=== PATIENT | female | born 1980 | race Caucasian/White ===

== ENCOUNTER 2019-02-18 23:04 | Emergency (ER) | payer OTHER ==
[~2019-02-18] VITALS: Ht 160 cm; Wt 43.0 kg
[~2019-02-18 23:04] MED LIST: CYAN1TAB2 PO; MAGN400T50 PO; MULT-484 PO; NICO-486 TD; POTA10TA5 PO; POTA20PA31 PO
--- NOTE | 2019-02-18 23:12 | NUR ---
PT REQUESTING NICOTENE PATCH, AWARE WE NEED TO WAIT FOR PRACTIONER.
[2019-02-18 23:34] VITALS: BP 121/82
== END 2019-02-19 00:38 | disposition home or self-care (01) ==
LOC: ED 02-19 00:31
DX: F10.120 Alcohol abuse with intoxication, uncomplicated (principal); F17.210 Nicotine dependence, cigarettes, uncomplicated; Z72.9 Problem related to lifestyle, unspecified
CPT/HCPCS: 99283

== ENCOUNTER 2020-04-06 20:20 | Outpatient (CLI) | payer MEDICAID ==
[~2020-04-06] VITALS: Ht 160 cm; Wt 58.1 kg
== END 2020-04-06 21:38 | disposition home or self-care (01) ==
LOC: LDOP 20:20
PROVIDERS: ATTEND Obstetrics & Gynecology
DX: O42.92 Full-term premature rupture of membranes, unspecified as to length of time between rupture and onset of labor (principal); Z3A.37 37 weeks gestation of pregnancy
CPT/HCPCS: 59025; 84112; 99211; G0463

== ENCOUNTER 2020-04-15 06:14 | Inpatient (IN) | payer MEDICAID ==
[~2020-04-15] VITALS: Ht 160 cm; Wt 58.2 kg
[2020-04-15] MEDS ORDERED: LACTATED RINGERS 1,000 ML IV SCH ×2 (06:17→06:37)
[2020-04-15] MEDS ORDERED: OXYTOCIN 30U/ 0.9% NaCL 500ML 500 ML IV PRN (06:17)
[2020-04-15] MEDS ORDERED: OXYTOCIN 30U/ 0.9% NaCL 500ML 500 ML IV ONE (06:17)
[2020-04-15] MEDS ORDERED: LIDOCAINE 1%, 20ML ONE (06:17)
[2020-04-15] MEDS ORDERED: MISOPROSTOL 200 MCG TABLET ONE (06:17)
[2020-04-15] MEDS ORDERED: NEWBORN KIT ONE (06:17)
[2020-04-15] MEDS ORDERED: OXYTOCIN 30U/ 0.9% NaCL 500ML 500 ML ONE ×2 (06:17→15:22)
[2020-04-15] MEDS ORDERED: TERBUTALINE 1 MG/ML, 1ML SQ PRN (06:30)
[2020-04-15] MEDS ORDERED: FENTANYL PF 100 MCG/2ML IV PRN (06:30)
[2020-04-15] MEDS ORDERED: METOCLOPRAMIDE 5 MG/ML, 2ML IVPush PRN (06:30)
[2020-04-15] MEDS ORDERED: CALCIUM CARBONATE 500 MG TAB.CHEW PO PRN (06:30)
[2020-04-15] MEDS ORDERED: ONDANSETRON 2MG/ML, 2ML IVPush PRN (06:30)
[2020-04-15] MEDS ORDERED: FENTANYL PF 100 MCG/2ML IVPush PRN (06:30)
[2020-04-15] MEDS ORDERED: SODIUM CITRATE/CITRIC ACID 30 ML UDC PO PRN (06:30)
[2020-04-15] MEDS ORDERED: TERBUTALINE 1 MG/ML, 1ML IVPush PRN (06:30)
[2020-04-15 06:35] VITALS: BP 120/74
[2020-04-15] MEDS ORDERED: FENTANYL/BUPIV./NS/PF 250 ML EPIDCONT SCH (06:37)
[2020-04-15] MEDS ORDERED: FENTANYL PF 500 MCG, BUPIVACAINE/PF 0.5%, 30ML 62.5 ML in SODIUM CHLORIDE 0.9% 177.5 ML EPIDCONT SCH (07:00)
[2020-04-15] MEDS ORDERED: PLEASE ENTER HEIGHT AND WEIGHT MC SCH (07:00)
[2020-04-15] MEDS ORDERED: LACTATED RINGERS 1,000 ML IVBOLUS PRN (07:00)
[2020-04-15] MEDS ORDERED: EPHEDRINE 50 MG/ML, 1ML IVPush PRN (07:00)
[2020-04-15 07:21] LABS: BASOPHILS # (AUTO) 0.04 x10^3/uL (0-0.1); BASOPHILS % (AUTO) 0 % (0-1); EOSINOPHILS # (AUTO) 0.09 x10^3/uL (0-0.4); EOSINOPHILS % (AUTO) 1 % (1-7); LYMPHOCYTES # (AUTO) 1.86 x10^3/uL (1-3.4); LYMPHOCYTES % (AUTO) 14 % (22-44); MD NO; MEAN CORPUSCULAR HEMOGLOBIN 32.1 pg (27.0-34.8); MEAN CORPUSCULAR HGB CONC 33.5 g/dL (32.4-35.8); MEAN CORPUSCULAR VOLUME 95.8 fL (80-100); MEAN PLATELET VOLUME 9.3 fL (7.4-10.4); MONOCYTES # (AUTO) 0.43 x10^3/uL (0.2-0.8); MONOCYTES % (AUTO) 3 % (2-9); NEUTROPHILS # (AUTO) 10.69 x10^3/uL (1.8-6.8); NEUTROPHILS % (AUTO) 82 % (42-75); PLATELET COUNT 229 x10^3/uL (130-400); RED BLOOD COUNT 3.83 x10^6/uL (3.82-5.3); RED CELL DISTRIBUTION WIDTH 14.2 % (9.6-15.2)
[2020-04-15] MEDS ORDERED: metroNIDAZOLE 500 MG TABLET PO ONE (08:00)
[2020-04-15] MEDS ORDERED: FENTANYL PF 100 MCG/2ML ONE (13:39)
[2020-04-15] MEDS ORDERED: LIDOCAINE/PF 1.5%-EPI 1:200K, 30ML ONE (13:40)
[2020-04-15] MEDS ORDERED: BUPIVACAINE/PF 0.25% ONE (13:40)
[2020-04-15] MEDS ORDERED: BUPIVACAINE 0.25% ONE (13:40)
[2020-04-15] MEDS ORDERED: IBUPROFEN 600 MG TABLET ONE (15:54)
[2020-04-15] MEDS: IBUPROFEN 600 MG TABLET PO PRN ×2 (15:55→22:40)
[2020-04-15] MEDS ORDERED: ONDANSETRON 2MG/ML, 2ML IV PRN (16:00)
[2020-04-15] MEDS ORDERED: MISOPROSTOL 200 MCG TABLET PR PRN (16:00)
[2020-04-15] MEDS ORDERED: SIMETHICONE 80 MG CHEW TAB PO PRN (16:00)
[2020-04-15] MEDS ORDERED: ACETAMINOPHEN 325 MG TABLET PO PRN (16:00)
[2020-04-15] MEDS ORDERED: OXYcodone/APAP 5/325MG TABLET PO PRN (16:00)
[2020-04-15 18:10] VITALS: BP 103/64
[2020-04-15 19:30] VITALS: BP 110/71
[2020-04-15] MEDS: OXYTOCIN 30U/ 0.9% NaCL 500ML 500 ML IV SCH (21:32)
[2020-04-15] MEDS: DOCUSATE 100 MG CAPSULE PO PRN (22:39)
[2020-04-16] VITALS: BP 103/65
[2020-04-16 00:32] LABS: BASOPHILS # (AUTO) 0.05 x10^3/uL (0-0.1); BASOPHILS % (AUTO) 0 % (0-1); EOSINOPHILS % (AUTO) 1 % (1-7); LYMPHOCYTES # (AUTO) 2.24 x10^3/uL (1-3.4); LYMPHOCYTES % (AUTO) 13 % (22-44); MD NO; MEAN CORPUSCULAR HGB CONC 33.5 g/dL (32.4-35.8); MEAN CORPUSCULAR VOLUME 95.5 fL (80-100); MEAN PLATELET VOLUME 9.1 fL (7.4-10.4); MONOCYTES # (AUTO) 0.53 x10^3/uL (0.2-0.8); MONOCYTES % (AUTO) 3 % (2-9); NEUTROPHILS # (AUTO) 14.18 x10^3/uL (1.8-6.8); NEUTROPHILS % (AUTO) 83 % (42-75); PLATELET COUNT 173 x10^3/uL (130-400); RED BLOOD COUNT 3.21 x10^6/uL (3.82-5.3); RED CELL DISTRIBUTION WIDTH 13.9 % (9.6-15.2)
[2020-04-16] MEDS: OXYTOCIN 30U/ 0.9% NaCL 500ML 500 ML IV SCH (02:00)
[2020-04-16 04:30] VITALS: BP 97/61
[2020-04-16] MEDS: IBUPROFEN 600 MG TABLET PO PRN ×3 (04:32→17:07)
[2020-04-16 07:45] VITALS: BP 99/65
[2020-04-16] MEDS ORDERED: PRENATAL VIT/IRON/FA 1 EACH TABLET PO SCH (09:00)
[2020-04-16] MEDS: DOCUSATE 100 MG CAPSULE PO PRN (10:35)
[2020-04-16 12:00] VITALS: BP 95/59
[2020-04-16] MEDS ORDERED: IBUP-1222 PO (14:13)
== END 2020-04-16 18:20 | disposition home or self-care (01) | DRG 560 ==
LOC: LDIP 06:14 → 2NW 17:51
PROVIDERS: ADMIT Obstetrics & Gynecology; ATTEND Obstetrics & Gynecology
PROC: 10E0XZZ Delivery of Products of Conception, External Approach (ICD-10-PCS; principal; 2020-04-15)
PROC: 0HQ9XZZ Repair Perineum Skin, External Approach (ICD-10-PCS; 2020-04-15)
DX: O32.8XX0 Maternal care for other malpresentation of fetus, not applicable or unspecified (principal); O98.32 Other infections with a predominantly sexual mode of transmission complicating childbirth; O24.420 Gestational diabetes mellitus in childbirth, diet controlled; O40.3XX0 Polyhydramnios, third trimester, not applicable or unspecified; A59.9 Trichomoniasis, unspecified; O70.0 First degree perineal laceration during delivery; Z3A.39 39 weeks gestation of pregnancy; Z37.0 Single live birth; Z82.49 Family history of ischemic heart disease and other diseases of the circulatory system; Z83.3 Family history of diabetes mellitus; Z87.891 Personal history of nicotine dependence
CPT/HCPCS: J3490; S0020; 36415; 82947; 82962; 85025; 86592; 86850; 86870; 86900; 86922; 86923; G0378; J3010; J2590; J7050; J7120

== ENCOUNTER 2020-04-28 20:53 | Outpatient (CLI) | payer MEDICAID ==
[~2020-04-28 20:53] MED LIST changes: +IBUP-1222 PO
[2020-04-28 21:00] VITALS: BP 144/80
[2020-04-28 22:11] LABS: BASOPHILS # (AUTO) 0.04 x10^3/uL (0-0.1); BASOPHILS % (AUTO) 0 % (0-1); EOSINOPHILS # (AUTO) 0.23 x10^3/uL (0-0.4); EOSINOPHILS % (AUTO) 2 % (1-7); LYMPHOCYTES # (AUTO) 2.88 x10^3/uL (1-3.4); LYMPHOCYTES % (AUTO) 24 % (22-44); MD NO; MEAN CORPUSCULAR HEMOGLOBIN 31.8 pg (27.0-34.8); MEAN CORPUSCULAR HGB CONC 33.2 g/dL (32.4-35.8); MEAN CORPUSCULAR VOLUME 95.6 fL (80-100); MEAN PLATELET VOLUME 8.4 fL (7.4-10.4); MONOCYTES # (AUTO) 0.42 x10^3/uL (0.2-0.8); MONOCYTES % (AUTO) 4 % (2-9); NEUTROPHILS # (AUTO) 8.44 x10^3/uL (1.8-6.8); NEUTROPHILS % (AUTO) 70 % (42-75); PLATELET COUNT 262 x10^3/uL (130-400); RED BLOOD COUNT 3.88 x10^6/uL (3.82-5.3)
[2020-04-28] MEDS ORDERED: NIFE30TA2 PO (22:18)
[2020-04-28 22:20] LABS: ALANINE AMINOTRANSFERASE 16 U/L (12-78); ALBUMIN 3.1 g/dL (3.4-5.0); ANION GAP 7 mmol/L (5-15); BILIRUBIN, DIRECT < 0.1 mg/dL (0.1-0.2); CALCIUM 7.8 mg/dL (8.5-10.1); CHLORIDE 111 mmol/L (98-107); CREATININE 0.81 mg/dL (0.55-1.02)
[2020-04-28 22:22] LABS: ALKALINE PHOSPHATASE 121 U/L (45-117); BILIRUBIN,TOTAL 0.2 mg/dL (0.2-1.0); TOTAL PROTEIN 6.4 g/dL (6.4-8.2)
== END 2020-04-28 23:22 | disposition home or self-care (01) ==
LOC: LDOP 20:53
PROVIDERS: ATTEND Obstetrics & Gynecology
DX: O09.523 Supervision of elderly multigravida, third trimester (principal); O16.3 Unspecified maternal hypertension, third trimester; Z3A.36 36 weeks gestation of pregnancy
CPT/HCPCS: 36415; 80053; 82248; 84550; 85025

== ENCOUNTER 2020-09-26 14:15 | Emergency (ER) | payer MEDICAID ==
[~2020-09-26] VITALS: Ht 160 cm; Wt 57.0 kg
[~2020-09-26 14:15] MED LIST changes: +NIFE30TA2 PO
--- NOTE | 2020-09-26 15:14 | NUR ---
PATIENT WALKED BACK FROM TRIAGE WITH CHIEF C/O "MY BODY IS SO SCREWED UP." PATIENT STATES SHE DEVELOPED A DRINKING PROBLEM IN 2017 AND FEELS LIKE HER ELECTROLYTES ARE OFF, STATES "I'VE HAD TO DEAL WITH KETOACIDOSIS HERE." PATIENT REPORTS LAST DRINK WAS "30 MINUTES AGO." SHE STATES SHE STARTED DRINKING AGAIN 3 WEEKS AGO, TRIED DETOXING AT HOME THE LAST 3 DAYS AND IT DIDN'T WORK. NO SIGNS OF ACUTE DISTRESS, CONNECTED TO VITALS MACHINE, CALL LIGHT WITHIN REACH.
[2020-09-26 15:23] LABS: BASOPHILS % (AUTO) 0 % (0-1); EOSINOPHILS % (AUTO) 0 % (1-7); LYMPHOCYTES % (AUTO) 43 % (22-44); MEAN CORPUSCULAR HEMOGLOBIN 32.7 pg (27.0-34.8); MEAN CORPUSCULAR HGB CONC 33.8 g/dL (32.4-35.8); MEAN PLATELET VOLUME 8.7 fL (7.4-10.4); MONOCYTES % (AUTO) 8 % (2-9); NEUTROPHILS % (AUTO) 49 % (42-75); PLATELET COUNT 186 x10^3/uL (130-400); RED BLOOD COUNT 5.24 x10^6/uL (3.82-5.3); RED CELL DISTRIBUTION WIDTH 15.7 % (9.6-15.2)
[2020-09-26 15:24] LABS: MD NO
--- NOTE | 2020-09-26 15:24 | NUR ---
ERMD AT BEDSIDE TO DISCUSS POC.
[2020-09-26 15:25] LABS: ALANINE AMINOTRANSFERASE 38 U/L (12-78); ALBUMIN 3.9 g/dL (3.4-5.0); ANION GAP 8 mmol/L (5-15); CALCIUM 8.5 mg/dL (8.5-10.1); CHLORIDE 108 mmol/L (98-107)
--- NOTE | 2020-09-26 15:25 | NUR ---
EDUCATED PATIENT ON NEED FOR URINE SAMPLE, PATIENT STATES SHE CANNOT GO RIGHT NOW.
[2020-09-26 15:27] VITALS: BP 113/80
[2020-09-26 15:30] LABS: ALKALINE PHOSPHATASE 218 U/L (45-117); BILIRUBIN,TOTAL 0.2 mg/dL (0.2-1.0); TOTAL PROTEIN 7.7 g/dL (6.4-8.2)
--- NOTE | 2020-09-26 15:45 | NUR ---
REPORT GIVEN TO SHWETA PRATHER FOR TRANSFER OF PATIENT CARE.
--- NOTE | 2020-09-26 15:54 | NUR ---
REPORT RC'VD FROM [facility] AND CARE OF PT ASSUMED. PT AMBULATED TO BR WITHOUT DIFFICULTY, INSTRUCTED ON CLEAN CATCH URINE SAMPLE. WARM BLANKET & WATER PROVIDED.
[2020-09-26 16:23] LABS: MICROSCOPIC NOT IND
[2020-09-26] MEDS ORDERED: POTASSIUM CHLORIDE 20 MEQ TAB.ER.PRT ONE (16:24)
[2020-09-26] MEDS ORDERED: POTASSIUM CHLORIDE 20 MEQ TAB.ER.PRT PO ONE (16:30)
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
== END 2020-09-26 16:36 | disposition home or self-care (01) ==
LOC: ED 16:15
DX: F10.20 Alcohol dependence, uncomplicated (principal); E87.6 Hypokalemia; R10.84 Generalized abdominal pain; Y90.9 Presence of alcohol in blood, level not specified
CPT/HCPCS: 36415; 80053; 80307; 81003; 83690; 83735; 84703; 85025; 99283

== ENCOUNTER 2020-09-28 08:28 | Emergency (ER) | payer MEDICAID ==
[~2020-09-28] VITALS: Ht 160 cm; Wt 54.4 kg
[2020-09-28 08:29] VITALS: BP 150/95
[2020-09-28] MEDS ORDERED: CHLORDIAZEPOXIDE 25 MG CAPSULE PO ONE (09:00)
[2020-09-28] MEDS ORDERED: THIAMINE 100MG TABLET PO ONE (09:00)
[2020-09-28] MEDS ORDERED: CHLORDIAZEPOXIDE 25 MG CAPSULE ONE (09:07)
[2020-09-28] MEDS ORDERED: THIAMINE 100MG TABLET ONE (09:07)
== END 2020-09-28 09:47 | disposition home or self-care (01) ==
LOC: ED 09:25
DX: F10.10 Alcohol abuse, uncomplicated (principal); F41.9 Anxiety disorder, unspecified; R00.0 Tachycardia, unspecified; R25.1 Tremor, unspecified; Z90.49 Acquired absence of other specified parts of digestive tract; Y90.9 Presence of alcohol in blood, level not specified
CPT/HCPCS: 93005; 99283

== ENCOUNTER 2020-10-09 12:54 | Emergency (ER) | payer MEDICAID ==
[~2020-10-09] VITALS: Ht 160 cm; Wt 55.9 kg
[2020-10-09 13:14] VITALS: BP 149/92
== END 2020-10-09 14:49 | disposition home or self-care (01) ==
LOC: ED 14:32
DX: S93.621A Sprain of tarsometatarsal ligament of right foot, initial encounter (principal); S90.32XA Contusion of left foot, initial encounter; F10.129 Alcohol abuse with intoxication, unspecified; Z90.49 Acquired absence of other specified parts of digestive tract; Y90.9 Presence of alcohol in blood, level not specified; X58.XXXA Exposure to other specified factors, initial encounter; Y93.89 Activity, other specified; Y92.410 Unspecified street and highway as the place of occurrence of the external cause; Y99.8 Other external cause status
CPT/HCPCS: 99284

== ENCOUNTER 2021-01-10 13:17 | Inpatient (IN) | payer MEDICAID ==
[~2021-01-10] VITALS: Ht 160 cm; Wt 58.4 kg
[2021-01-10] MEDS ORDERED: ONDANSETRON 2MG/ML, 2ML IVPush ONE (13:30)
[2021-01-10] MEDS ORDERED: SODIUM CHLORIDE 0.9% 1,000ML IVBOLUS ONE (13:30)
[2021-01-10] MEDS ORDERED: FAMOTIDINE 20 MG/2 ML IVPush ONE (13:30)
[2021-01-10] MEDS ORDERED: ONDANSETRON 2MG/ML, 2ML ONE (13:33)
[2021-01-10] MEDS ORDERED: FAMOTIDINE 20 MG/2 ML ONE (13:34)
[2021-01-10 13:46] LABS: MEAN CORPUSCULAR HEMOGLOBIN 32.5 pg (27.0-34.8); MEAN CORPUSCULAR HGB CONC 33.4 g/dL (32.4-35.8); PLATELET COUNT 104 x10^3/uL (130-400); RED BLOOD COUNT 4.78 x10^6/uL (3.82-5.3); RED CELL DISTRIBUTION WIDTH 15.3 % (9.6-15.2)
[2021-01-10 13:55] LABS: ALANINE AMINOTRANSFERASE 62 U/L (12-78); ALBUMIN 3.7 g/dL (3.4-5.0); ANION GAP 25 mmol/L (5-15); CALCIUM 7.4 mg/dL (8.5-10.1); CHLORIDE 99 mmol/L (98-107)
[2021-01-10 14:00] LABS: ALKALINE PHOSPHATASE 163 U/L (45-117); BILIRUBIN,TOTAL 0.8 mg/dL (0.2-1.0); CREATININE 0.91 mg/dL (0.55-1.02); TOTAL PROTEIN 7.3 g/dL (6.4-8.2)
[2021-01-10] MEDS ORDERED: LORazepam 2 MG/ML, 1ML IVPush ONE (14:00)
[2021-01-10 14:03] LABS: MD YES
[2021-01-10 14:06] LABS: <PLATELET ESTIMATE> DECREASED; <RBC MORPHOLOGY> NORMAL; BAND#(MANUAL) 2.31 x10^3/uL; BANDS%(MANUAL) 15 % (0-7); LYMPH#(MANUAL) 0.31 x10^3/uL (1-3.4); LYMPHS% (MANUAL) 2 % (22-44); SEG#(MANUAL) 12.78 x10^3/uL (1.8-6.8); SEGS% (MANUAL) 83 % (42-75)
[2021-01-10 14:08] LABS: LARGE PLATELETS 1+
[2021-01-10] MEDS ORDERED: LORazepam 2 MG/ML, 1ML ONE ×2 (14:12→16:00)
[2021-01-10] MEDS ORDERED: MAALOX/HYOSCYAMINE/LIDOCAINE 45 ML BTL ONE (14:13)
[2021-01-10] MEDS: MAALOX/HYOSCYAMINE/LIDOCAINE 45 ML BTL PO ONE ×3 (14:21→17:02)
--- NOTE | 2021-01-10 14:40 | NUR ---
(CONTINIUED) OF INTENT TO ADMIT
--- NOTE | 2021-01-10 14:40 | NUR ---
RE-EVAL. TO BE ADMITTED. PT AWARE
[2021-01-10] MEDS ORDERED: ONDANSETRON ODT 4 MG PO PRN (15:00)
[2021-01-10] MEDS ORDERED: ONDANSETRON 2MG/ML, 2ML IVPush PRN (15:00)
[2021-01-10] MEDS ORDERED: SODIUM CHLORIDE 0.9% 1,000 ML IV ONE (15:00)
[2021-01-10] MEDS ORDERED: GABAPENTIN 300 MG CAPSULE PO PRN (15:00)
[2021-01-10] MEDS ORDERED: LORazepam 0.5MG TABLET PO PRN (15:00)
[2021-01-10] MEDS ORDERED: LORazepam 2 MG/ML, 1ML IV PRN ×4 (15:00)
[2021-01-10] MEDS ORDERED: LORazepam 1MG TABLET PO PRN ×3 (15:00)
[2021-01-10] MEDS ORDERED: ACETAMINOPHEN 325 MG TABLET PO PRN (15:00)
[2021-01-10] MEDS ORDERED: METOCLOPRAMIDE 5 MG/ML, 2ML IVPush PRN (15:00)
[2021-01-10] MEDS ORDERED: SODIUM CHLORIDE FLUSH 10ML SYR IVF PRN (15:00)
[2021-01-10] MEDS ORDERED: ENALAPRILAT 1.25 MG/ML, 2ML IVPush PRN (15:00)
[2021-01-10] MEDS ORDERED: LORazepam 2 MG/ML, 1ML IVPush PRN (16:00)
--- NOTE | 2021-01-10 16:00 | NUR ---
PT NOTED TO BE SLEEPING FROM POINT RECEIVING ONE MG OF ATIVAN UNTIL NOW. STRAIGHT CATH URINE OBTAINED AND PUREWICK IN PLACE. PT C/O CP WHEN SHE AWOKE ,PRESSURE TYPE. ER MD AWARE ALONG WITH EKG COMPLETED. CIWA TO BE COMPLETED AND MEDICATED FOR ALCOHOL W/D SYMPTOMS
[2021-01-10 16:05] LABS: MICROSCOPIC AUTO
--- NOTE | 2021-01-10 16:24 | NUR ---
REPORT TO RN. AWAITING ROOM TO BE CLEAN BEFORE TRANSFERRING TO FLOOR
[2021-01-10] MEDS ORDERED: THIAMINE 200 MG in DEXTROSE 5% 50 ML IVPB ONE (17:00)
[2021-01-10] MEDS ORDERED: FOLIC ACID 5 MG/ML IM ONE (17:00)
[2021-01-10] MEDS: HEPARIN 5,000 UNITS/ML, 1ML SQ SCH (17:00)
[2021-01-10 17:27] VITALS: BP 125/78
[2021-01-10] MEDS: CHLORDIAZEPOXIDE 25 MG CAPSULE PO SCH ×2 (17:46→20:21)
[2021-01-10 18:31] VITALS: BP 125/78
[2021-01-10] MEDS: FOLIC ACID IV SCH (18:55)
[2021-01-10] MEDS: MAGNESIUM SULFATE IV SCH (18:55)
[2021-01-10] MEDS: POTASSIUM CHLORIDE IV SCH (18:55)
[2021-01-10] MEDS: [UNRECOGNIZED DRUG - OTHER] IV SCH (18:55)
[2021-01-10 19:28] VITALS: BP 127/64
[2021-01-10] MEDS: LACTULOSE 10 GM/15 ML UDC PO SCH (20:21)
[2021-01-10] MEDS: LORazepam 2 MG/ML, 1ML IV PRN (22:33)
[2021-01-11 01:34] VITALS: BP 114/67
[2021-01-11] MEDS: [UNRECOGNIZED DRUG - OTHER] IV SCH (01:45)
[2021-01-11] MEDS: POTASSIUM CHLORIDE IV SCH (01:45)
[2021-01-11] MEDS: FOLIC ACID IV SCH (01:45)
[2021-01-11] MEDS: MAGNESIUM SULFATE IV SCH (01:45)
[2021-01-11] MEDS: HEPARIN 5,000 UNITS/ML, 1ML SQ SCH ×3 (01:45→17:48)
[2021-01-11] MEDS: CHLORDIAZEPOXIDE 25 MG CAPSULE PO SCH ×4 (03:09→20:11)
[2021-01-11 05:42] LABS: MEAN CORPUSCULAR HEMOGLOBIN 32.1 pg (27.0-34.8); MEAN CORPUSCULAR HGB CONC 33.7 g/dL (32.4-35.8); MEAN PLATELET VOLUME 9.5 fL (7.4-10.4); RED CELL DISTRIBUTION WIDTH 15.1 % (9.6-15.2)
[2021-01-11 05:51] LABS: CHLORIDE 104 mmol/L (98-107)
[2021-01-11 06:00] LABS: ANION GAP 6 mmol/L (5-15); CALCIUM 7.5 mg/dL (8.5-10.1); CREATININE 0.64 mg/dL (0.55-1.02)
[2021-01-11] MEDS: LORazepam 2 MG/ML, 1ML IV PRN ×2 (06:14→22:02)
[2021-01-11 06:30] LABS: PLATELET COUNT 70 x10^3/uL (130-400)
[2021-01-11 06:31] LABS: MD YES
[2021-01-11 06:33] LABS: LYMPH#(MANUAL) 0.76 x10^3/uL (1-3.4); LYMPHS% (MANUAL) 12 % (22-44); MONOS#(MANUAL) 0.25 x10^3/uL (0.3-2.7); MONOS% (MANUAL) 4 % (2-9)
[2021-01-11 06:34] LABS: BAND#(MANUAL) 0.63 x10^3/uL; BANDS%(MANUAL) 10 % (0-7); SEG#(MANUAL) 4.66 x10^3/uL (1.8-6.8); SEGS% (MANUAL) 74 % (42-75)
[2021-01-11 06:36] LABS: <PLATELET ESTIMATE> DECREASED; <PLT MORPHOLOGY> NORMAL PLT MORPH; <RBC MORPHOLOGY> NORMAL
[2021-01-11 07:13] VITALS: BP 102/69
[2021-01-11] MEDS: PANTOPRAZOLE 40MG TABLET PO SCH (07:16)
[2021-01-11] MEDS: MULTIVITAMINS/MINERALS TABLET PO SCH (09:56)
[2021-01-11] MEDS: LACTULOSE 10 GM/15 ML UDC PO SCH ×2 (09:56→20:12)
[2021-01-11 12:41] VITALS: BP 112/65
[2021-01-11] MEDS: NICOTINE 21 MG/24 HR PATCH.TD24 TD SCH (14:43)
[2021-01-11] MEDS: LORazepam 1MG TABLET PO PRN (17:42)
[2021-01-11 20:08] VITALS: BP 120/71
[2021-01-12 00:57] VITALS: BP 122/81
[2021-01-12] MEDS: LORazepam 2 MG/ML, 1ML IV PRN (01:15)
[2021-01-12] MEDS: HEPARIN 5,000 UNITS/ML, 1ML SQ SCH ×3 (02:00→15:08)
[2021-01-12] MEDS: CHLORDIAZEPOXIDE 25 MG CAPSULE PO SCH ×3 (03:13→15:01)
[2021-01-12 06:13] LABS: BASOPHILS % (AUTO) 1 % (0-1); EOSINOPHILS % (AUTO) 7 % (1-7); LYMPHOCYTES % (AUTO) 33 % (22-44); MEAN CORPUSCULAR HEMOGLOBIN 32.2 pg (27.0-34.8); MEAN CORPUSCULAR HGB CONC 33.7 g/dL (32.4-35.8); MEAN PLATELET VOLUME 9.4 fL (7.4-10.4); MONOCYTES % (AUTO) 7 % (2-9); NEUTROPHILS % (AUTO) 53 % (42-75); RED BLOOD COUNT 3.83 x10^6/uL (3.82-5.3); RED CELL DISTRIBUTION WIDTH 14.6 % (9.6-15.2)
[2021-01-12 06:24] LABS: ALANINE AMINOTRANSFERASE 33 U/L (12-78); ANION GAP 6 mmol/L (5-15); CALCIUM 8.3 mg/dL (8.5-10.1); CHLORIDE 106 mmol/L (98-107); CREATININE 0.46 mg/dL (0.55-1.02)
[2021-01-12 06:26] LABS: ALKALINE PHOSPHATASE 102 U/L (45-117); BILIRUBIN,TOTAL 0.9 mg/dL (0.2-1.0); TOTAL PROTEIN 5.5 g/dL (6.4-8.2)
[2021-01-12] MEDS: LORazepam 1MG TABLET PO PRN ×2 (06:37→09:37)
[2021-01-12 07:18] VITALS: BP 117/79
[2021-01-12 08:35] LABS: PLATELET COUNT 76 x10^3/uL (130-400)
[2021-01-12 08:46] LABS: MD SCAN
[2021-01-12] MEDS: LACTULOSE 10 GM/15 ML UDC PO SCH (09:00)
[2021-01-12] MEDS ORDERED: THIAMINE 100 MG in DEXTROSE 5% 50 ML IVPB SCH (09:00)
[2021-01-12] MEDS: MULTIVITAMINS/MINERALS TABLET PO SCH (09:37)
[2021-01-12] MEDS: PANTOPRAZOLE 40MG TABLET PO SCH (09:37)
[2021-01-12 12:01] VITALS: BP 116/78
[2021-01-12] MEDS: NICOTINE 21 MG/24 HR PATCH.TD24 TD SCH (15:04)
== END 2021-01-12 18:11 | disposition home or self-care (01) | DRG 392 ==
LOC: SUATTDRO 14:56 → ED 15:00 → EDIP 16:05 → 4WST 17:14
PROVIDERS: ADMIT Family Medicine; ATTEND Hospitalist
DX: K29.20 Alcoholic gastritis without bleeding (principal); E87.2 Acidosis; F17.210 Nicotine dependence, cigarettes, uncomplicated; F41.9 Anxiety disorder, unspecified; E86.0 Dehydration; D72.825 Bandemia; F10.129 Alcohol abuse with intoxication, unspecified; Y90.9 Presence of alcohol in blood, level not specified; Z90.89 Acquired absence of other organs; Z88.5 Allergy status to narcotic agent; Z71.6 Tobacco abuse counseling; Z83.3 Family history of diabetes mellitus; Z82.49 Family history of ischemic heart disease and other diseases of the circulatory system; Z79.899 Other long term (current) drug therapy
CPT/HCPCS: 36415; 80048; 80053; 81001; 83690; 83735; 84100; 84703; 85025; 87040; 93005; 96361; 96374; 96375; 96376; 99285; 99406; G0378; J2405; J3411; J3475; J3480; J2060; J7030

== ENCOUNTER 2021-01-25 18:40 | Inpatient (IN) | payer MEDICAID ==
[~2021-01-25] VITALS: Ht 160 cm; Wt 51.9 kg
--- NOTE | 2021-01-25 18:53 | NUR ---
ASSUMED CARE OF PATIENT. PATIENT BIB [facility] FOR ETOH. PT REPORTS SHE WANTS DETOX. LAST DRINK WAS X30 MINS AGO. PT ABLE TO SAFELY AMBULATE AROUND ROOM AND PUT GOWN ON. PT IS A&O X4. PT WAS IN URINE SOAKED PANTS. BELONGINGS PLACED IN A BAG FOR PATIENT. VS STABLE. TUNNEL DRIER OPERATOR ON. SINUS TACH NOTED. CALL LIGHT IN PLACE. WILL CONTINUE TO MONITOR.
--- NOTE | 2021-01-25 19:10 | NUR ---
PT GIVEN ICE CHIPS PER DR SOTO.
--- NOTE | 2021-01-25 19:21 | NUR ---
PT SEEN BY DR SOTO.
[2021-01-25] MEDS ORDERED: ONDANSETRON 2MG/ML, 2ML ONE (19:23)
[2021-01-25] MEDS ORDERED: LORazepam 2 MG/ML, 1ML ONE (19:23)
[2021-01-25] MEDS ORDERED: NICOTINE 21 MG/24 HR PATCH.TD24 TD ONE (19:30)
[2021-01-25] MEDS ORDERED: LORazepam 2 MG/ML, 1ML IVPush PRN (19:30)
[2021-01-25] MEDS ORDERED: SODIUM CHLORIDE 0.9% 1,000 ML IV ONE ×2 (19:30→20:30)
[2021-01-25] MEDS ORDERED: ONDANSETRON 2MG/ML, 2ML IVPush ONE (19:30)
[2021-01-25] MEDS ORDERED: SODIUM CHLORIDE 0.9% 1,000ML IVBOLUS ONE (19:30)
[2021-01-25] MEDS ORDERED: SODIUM CHLORIDE FLUSH 10ML SYR IVF ONE (19:30)
[2021-01-25] MEDS ORDERED: NICOTINE 21 MG/24 HR PATCH.TD24 ONE (19:32)
[2021-01-25 19:39] LABS: BASOPHILS % (AUTO) 0 % (0-1); EOSINOPHILS % (AUTO) 1 % (1-7); LYMPHOCYTES % (AUTO) 16 % (22-44); MEAN CORPUSCULAR HEMOGLOBIN 32.7 pg (27.0-34.8); MEAN CORPUSCULAR HGB CONC 34.2 g/dL (32.4-35.8); MONOCYTES % (AUTO) 6 % (2-9); NEUTROPHILS % (AUTO) 78 % (42-75); PLATELET COUNT 178 x10^3/uL (130-400); RED CELL DISTRIBUTION WIDTH 16.5 % (9.6-15.2)
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
[2021-01-25 19:45] LABS: MD NO
[2021-01-25 19:47] LABS: ALANINE AMINOTRANSFERASE 59 U/L (12-78); ANION GAP 9 mmol/L (5-15); CALCIUM 7.4 mg/dL (8.5-10.1); CHLORIDE 103 mmol/L (98-107); CREATININE 0.62 mg/dL (0.55-1.02)
[2021-01-25 19:52] LABS: ALKALINE PHOSPHATASE 256 U/L (45-117); BILIRUBIN,TOTAL 0.8 mg/dL (0.2-1.0); TOTAL PROTEIN 6.4 g/dL (6.4-8.2)
--- NOTE | 2021-01-25 20:27 | NUR ---
UA SENT. PT RESTING IN ROOM. VS STABLE. CALL LIGHT IN PLACE. TREE TRIMMING SUPERVISOR ON. SINUS TACH NOTED. DR SOTO AWARE. WILL CONTINUE TO MONITOR.
[2021-01-25] MEDS ORDERED: SODIUM CHLORIDE FLUSH 10ML SYR IVF PRN (20:30)
[2021-01-25] MEDS ORDERED: ALPR0.25 PO (20:52)
--- NOTE | 2021-01-25 20:53 | NUR ---
PT RESTING IN ROOM. LEAF TINNER ON. VS STABLE. CALL LIGHT IN PLACE. WILL CONTINUE TO MONITOR.
[2021-01-25 20:54] LABS: AMPHETAMINE SCREEN, URINE Negative (Negative); BARBITURATE SCREEN, URINE Negative (Negative); BENZODIAZEPINE SCREEN, URINE Positive (Negative); CANNABINOID SCREEN, URINE Negative (Negative); COCAINE SCREEN, URINE Negative (Negative); METHADONE SCREEN, URINE Negative (Negative); OPIATE SCREEN, URINE Negative (Negative)
[2021-01-25] MEDS ORDERED: HYDROXYZINE (20:54)
[2021-01-25 21:05] LABS: MICROSCOPIC INDICATED
--- NOTE | 2021-01-25 21:12 | NUR ---
NO BLOOD CULTURES NEEDED PER DR SOTO.
[2021-01-25] MEDS ORDERED: CEFTRIAXONE PMX 1GM/50ML 50 ML ONE (21:16)
[2021-01-25] MEDS ORDERED: CEFTRIAXONE PMX 1GM/50ML 50 ML IV ONE (21:30)
[2021-01-25] MEDS ORDERED: OXYcodone IR 5MG TABLET PO PRN (22:00)
[2021-01-25] MEDS: ENOXAPARIN 40 MG/0.4 ML SQ SCH (22:00)
[2021-01-25] MEDS ORDERED: LORazepam 1MG TABLET PO PRN ×4 (22:00)
[2021-01-25] MEDS ORDERED: ONDANSETRON ODT 4 MG PO PRN (22:00)
[2021-01-25] MEDS ORDERED: DOCUSATE 100 MG CAPSULE PO PRN (22:00)
[2021-01-25] MEDS ORDERED: POLYETHYLENE GLYCOL 17 GM PACKET PO PRN (22:00)
[2021-01-25] MEDS ORDERED: LORazepam 0.5MG TABLET PO PRN (22:00)
[2021-01-25] MEDS ORDERED: morphine SULFATE 10 MG/ML, 1ML IVPush PRN (22:00)
[2021-01-25] MEDS ORDERED: PROMETHAZINE 25 MG/ML, 1ML IM PRN (22:00)
[2021-01-25] MEDS ORDERED: LORazepam 2 MG/ML, 1ML IV PRN ×4 (22:00)
[2021-01-25] MEDS ORDERED: BISACODYL 10 MG SUPP PR PRN (22:00)
[2021-01-25] MEDS ORDERED: ONDANSETRON 2MG/ML, 2ML IVPush PRN (22:00)
[2021-01-25] MEDS ORDERED: hydrALAzine 20 MG/ML, 1ML IVPush PRN (22:00)
[2021-01-25] MEDS: LORazepam 2 MG/ML, 1ML IV PRN (22:03)
[2021-01-25] MEDS: CHLORDIAZEPOXIDE 10 MG CAPSULE PO SCH (22:20)
[2021-01-25] MEDS: THIAMINE 200 MG, FOLIC ACID 1 MG in D5%-0.9% NACL 1,000 ML IV SCH (22:31)
[2021-01-26 00:16] VITALS: BP 108/65
[2021-01-26] MEDS: LORazepam 2 MG/ML, 1ML IV PRN ×2 (01:54→05:03)
[2021-01-26 05:40] LABS: BASOPHILS % (AUTO) 1 % (0-1); EOSINOPHILS % (AUTO) 2 % (1-7); LYMPHOCYTES % (AUTO) 31 % (22-44); MEAN CORPUSCULAR HEMOGLOBIN 33.2 pg (27.0-34.8); MEAN CORPUSCULAR HGB CONC 34.1 g/dL (32.4-35.8); MEAN PLATELET VOLUME 8.3 fL (7.4-10.4); MONOCYTES % (AUTO) 8 % (2-9); NEUTROPHILS % (AUTO) 59 % (42-75); PLATELET COUNT 129 x10^3/uL (130-400); RED BLOOD COUNT 3.64 x10^6/uL (3.82-5.3)
[2021-01-26 05:59] LABS: MD NO
[2021-01-26 06:01] LABS: CHLORIDE 106 mmol/L (98-107)
[2021-01-26 06:05] VITALS: BP 99/64
[2021-01-26 06:13] LABS: ALANINE AMINOTRANSFERASE 48 U/L (12-78); ALBUMIN 2.6 g/dL (3.4-5.0); ALKALINE PHOSPHATASE 204 U/L (45-117); BILIRUBIN,TOTAL 0.8 mg/dL (0.2-1.0); CALCIUM 7.3 mg/dL (8.5-10.1); CHOL/HDL RATIO 1.5; CHOLESTEROL, TOTAL 102 mg/dL (140-239); CREATININE 0.75 mg/dL (0.55-1.02); HDL CHOL % 69 % (28-40); HDL CHOLESTEROL (DIRECT) 70 mg/dL (40-60); LDL CHOLESTEROL,CALCULATED 19 mg/dL (54-169); LDL/HDL RATIO 0.3 (0.5-3.0); TOTAL PROTEIN 5.6 g/dL (6.4-8.2); TRIGLYCERIDES 64 mg/dL (50-200); VLDL CHOLESTEROL 13 mg/dL (0-25)
[2021-01-26 06:32] LABS: ANION GAP 7 mmol/L (5-15)
[2021-01-26] MEDS ORDERED: MAGNESIUM SULFATE PMX 4GM/100M 100 ML IVPB ONE (07:30)
[2021-01-26] MEDS ORDERED: PANTOPRAZOLE 40MG TABLET PO SCH (07:30)
[2021-01-26] MEDS: CHLORDIAZEPOXIDE 10 MG CAPSULE PO SCH (08:12)
[2021-01-26] MEDS: K-PHOS NEUTRAL 250MG TAB PO SCH ×2 (08:12→21:00)
[2021-01-26] MEDS: CHLORDIAZEPOXIDE 25 MG CAPSULE PO SCH ×3 (09:13→21:00)
[2021-01-26 14:10] VITALS: BP 136/94
[2021-01-26 18:47] VITALS: BP 115/76
[2021-01-26] MEDS ORDERED: CEFTRIAXONE PMX 2GM/50ML 50 ML IVPB SCH (21:00)
[2021-01-26] MEDS ORDERED: NICOTINE 21 MG/24 HR PATCH.TD24 ONE (21:25)
[2021-01-26] MEDS: THIAMINE 200 MG, FOLIC ACID 1 MG in D5%-0.9% NACL 1,000 ML IV SCH (21:56)
[2021-01-26] MEDS: ENOXAPARIN 40 MG/0.4 ML SQ SCH (21:59)
[2021-01-27] MEDS ORDERED: NICOTINE 21 MG/24 HR PATCH.TD24 TD SCH (09:00)
== END 2021-01-27 00:15 | disposition left against medical advice (07) | DRG 690 ==
LOC: ED 20:17 → EDIP 20:30 → 4WST 21:40
PROVIDERS: ADMIT Internal Medicine; ATTEND Hospitalist
DX: N39.0 Urinary tract infection, site not specified (principal); F10.239 Alcohol dependence with withdrawal, unspecified; D72.825 Bandemia; F10.229 Alcohol dependence with intoxication, unspecified; F17.210 Nicotine dependence, cigarettes, uncomplicated; F41.9 Anxiety disorder, unspecified; R00.0 Tachycardia, unspecified; Z82.49 Family history of ischemic heart disease and other diseases of the circulatory system; Z83.3 Family history of diabetes mellitus; Z86.32 Personal history of gestational diabetes; Z91.19 Patient's noncompliance with other medical treatment and regimen; Z88.5 Allergy status to narcotic agent
CPT/HCPCS: 36415; 87806; 96361; 96374; 96375; 99285; J7042; 71045; 80053; 80061; 80307; 80320; 81001; 83036; 83690; 83735; 84100; 84443; 84703; 85025; 86704; 86706; 86708; 86803; 87077; 87086; 87186; 87340; 87491; 87591; 93005; G0378; J0696; J1650; J2405; J3411; G0475; G0480; J2060; J3475; J7030

== ENCOUNTER 2021-02-28 08:05 | Emergency (ER) | payer MEDICAID ==
[~2021-02-28] VITALS: Ht 160 cm; Wt 54.5 kg
[~2021-02-28 08:05] MED LIST changes: +ALPR0.25 PO; +HYDROXYZINE
[2021-02-28] MEDS ORDERED: SODIUM CHLORIDE FLUSH 10ML SYR IVF ONE (08:30)
[2021-02-28] MEDS ORDERED: THIAMINE 100 MG in SODIUM CHLORIDE 0.9% 50 ML IVPB ONE (08:30)
[2021-02-28] MEDS ORDERED: SODIUM CHLORIDE 0.9% 1,000ML IVBOLUS ONE (08:30)
[2021-02-28 08:42] LABS: BASOPHILS % (AUTO) 1 % (0-1); EOSINOPHILS % (AUTO) 0 % (1-7); LYMPHOCYTES % (AUTO) 21 % (22-44); MEAN CORPUSCULAR HEMOGLOBIN 35.7 pg (27.0-34.8); MEAN CORPUSCULAR HGB CONC 33.7 g/dL (32.4-35.8); MEAN PLATELET VOLUME 9.6 fL (7.4-10.4); MONOCYTES % (AUTO) 6 % (2-9); NEUTROPHILS % (AUTO) 72 % (42-75); PLATELET COUNT 68 x10^3/uL (130-400); RED BLOOD COUNT 3.58 x10^6/uL (3.82-5.3); RED CELL DISTRIBUTION WIDTH 24.2 % (9.6-15.2)
[2021-02-28] MEDS: ONDANSETRON 2MG/ML, 2ML IVPush ONE ×2 (08:43→09:25)
--- NOTE | 2021-02-28 08:45 | NUR ---
PT REFUSING ZOFRAN, STATING SHE HAS NO NAUSEA CURRENTLY.
[2021-02-28 08:51] LABS: ANION GAP 11 mmol/L (5-15); CHLORIDE 100 mmol/L (98-107)
[2021-02-28 08:59] LABS: ALANINE AMINOTRANSFERASE 252 U/L (12-78); ALKALINE PHOSPHATASE 172 U/L (45-117); BILIRUBIN,TOTAL 2.5 mg/dL (0.2-1.0); CREATININE 0.68 mg/dL (0.55-1.02); TOTAL PROTEIN 5.9 g/dL (6.4-8.2)
[2021-02-28 09:14] LABS: MD MORPH REVIEW ONLY
[2021-02-28 09:15] LABS: ANISOCYTOSIS 1+; STOMATOCYTES 1+
[2021-02-28 09:16] LABS: <PLATELET ESTIMATE> DECREASED; <PLT MORPHOLOGY> NORMAL PLT MORPH
[2021-02-28] MEDS ORDERED: ONDANSETRON 2MG/ML, 2ML ONE (09:23)
--- NOTE | 2021-02-28 09:44 | NUR ---
TASK RN: PT MEDICATED PER EMAR, REQUESTING NICOTINE PATCH, STATES THAT SHE HAS TO BE ADMITTED. UPDATED OF POC AT THIS TIME. US AT BEDSIDE.
--- NOTE | 2021-02-28 10:22 | NUR ---
URINE COLLECTED AND SENT TO THE LAB
[2021-02-28 10:27] LABS: MICROSCOPIC INDICATED
[2021-02-28] MEDS ORDERED: FOSFOMYCIN 3 GM PACKET PO ONE (11:00)
[2021-02-28] MEDS ORDERED: FOSFOMYCIN 3 GM PACKET ONE (11:11)
--- NOTE | 2021-02-28 11:17 | NUR ---
TASK RN: DECORATOR LIGHTING FIXTURES PER JAN. PT RESTING COMFORTABLY ON RFORRESTON. SANDY.
[2021-02-28] MEDS ORDERED: BICILLIN-LA 2,400,000 UNITS/4 ML IM ONE ×2 (11:30→12:00)
[2021-02-28 11:59] VITALS: BP 113/75
--- NOTE | 2021-02-28 11:59 | NUR ---
TASK RN: PT PROVIDED RESOURCES AND TAXI VOUCHER TO [facility].
== END 2021-02-28 12:01 | disposition home or self-care (01) ==
LOC: ED 08:53
DX: F10.220 Alcohol dependence with intoxication, uncomplicated (principal); N30.00 Acute cystitis without hematuria; K85.20 Alcohol induced acute pancreatitis without necrosis or infection; R94.5 Abnormal results of liver function studies; Z88.5 Allergy status to narcotic agent; Y90.0 Blood alcohol level of less than 20 mg/100 ml
CPT/HCPCS: 36415; 76700; 80053; 80320; 81001; 83690; 83735; 84703; 85025; 87086; 93005; 96365; 96375; 99285; J2405; J3411; J7030; G0480

== ENCOUNTER 2021-03-17 11:40 | Emergency (ER) | payer MEDICAID ==
[~2021-03-17] VITALS: Ht 160 cm; Wt 60.0 kg
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
--- NOTE | 2021-03-17 13:10 | NUR ---
POLICE CONDUCTED WELLFARE CHECK ON PT RESIDENCE. "EVERYTHING WAS FINE" PER MOOSE HUNTER
[2021-03-17 13:52] LABS: CLUE CELLS NONE SEEN (NONE SEEN); WET PREP WBCS MODERATE (FEW)
[2021-03-17] MEDS ORDERED: CEFTRIAXONE 1,000 MG ONE (13:56)
[2021-03-17] MEDS ORDERED: AZITHROMYCIN 500 MG TABLET ONE (13:56)
[2021-03-17] MEDS ORDERED: AZITHROMYCIN 500 MG TABLET PO ONE (14:00)
[2021-03-17] MEDS ORDERED: CEFTRIAXONE 1,000 MG IM ONE (14:00)
[2021-03-17 14:16] VITALS: BP 118/86
--- NOTE | 2021-03-17 14:23 | NUR ---
PT MEDICATED BY FEMALE RN.
== END 2021-03-17 15:31 | disposition home or self-care (01) ==
LOC: EDBD → MERGE 11:40 → EDSEX 11:40 → ED 15:19
DX: F10.220 Alcohol dependence with intoxication, uncomplicated (principal); N76.0 Acute vaginitis; B96.89 Other specified bacterial agents as the cause of diseases classified elsewhere; F17.210 Nicotine dependence, cigarettes, uncomplicated; T76.21XA Adult sexual abuse, suspected, initial encounter
CPT/HCPCS: 36415; 80320; 84703; 87210; 87491; 87591; 87808; 96372; 99283; J0696; G0480